=== PATIENT | male | born 1995 | race Caucasian/White ===

== ENCOUNTER 2017-05-10 15:01 | Emergency (ER) | payer SELFPAY ==
[2017-05-10] MEDS ORDERED: Tetan/Diph/Pertus SYR(Tdap)* 0.5 ML SYR(BOOSTRIX) use SYR IM ONE (15:55)
[2017-05-10] MEDS ORDERED: Lidocaine 1% INJ* 10 MG/ML 30 ML SDV INJ ONE (16:32)
--- NOTE | 2017-05-10 17:22 | ED ---
Laceration/Wound HPI - HPI Summary HPI Summary: 21M presents with laceration to left thumb today. He cut it on some metal today at work. He has full ROM of his finger. He denies any numbness or tingling. He denies any foreign body or fracture. His pain is 3/10. He is right handed. - History of Current Complaint Stated Complaint: LT THUMB LAC Time Seen by Provider: 05/10/17 15:21 Pain Intensity: 3 - Allergy/Home Medications Allergies/Adverse Reactions: Allergies Allergy/AdvReac Type Severity Reaction Status Date / Time No Known Allergies Allergy Verified 05/10/17 16:41 PMH/Surg Hx/FS Hx/Imm Hx Endocrine/Hematology History: Denies: Hx Anticoagulant Therapy Infectious Disease History: Yes Infectious Disease History: Denies: Traveled Outside the [place] in Last 30 Days - Family History Known Family History: Positive: Hypertension - Social History Alcohol Use: Rare Substance Use Type: Reports: None Smoking Status (MU): Never Smoked Tobacco Review of Systems Negative: Fever Negative: Chest Pain Negative: Shortness Of Breath Positive: Other - lac fingers All Other Systems Reviewed And Are Negative: Yes Physical Exam Triage Information Reviewed: Yes Vital Signs On Initial Exam: Initial Vitals Temp Pulse Resp BP Pulse Ox 97.7 F 63 18 150/112 100 05/10/17 15:05 05/10/17 15:05 05/10/17 15:05 05/10/17 15:05 05/10/17 15:05 Vital Signs Reviewed: Yes Appearance: Positive: Well-Appearing Skin: Positive: Warm, Dry, Other - 2cm laceration across distal phalanx of left thumb Head/Face: Positive: Normal Head/Face Inspection Eyes: Positive: Normal, Conjunctiva Clear Respiratory/Lung Sounds: Positive: Clear to Auscultation, Breath Sounds Present Cardiovascular: Positive: Normal, RRR Musculoskeletal: Positive: Strength/ROM Intact - left thumb, Other - capillary refill<2 secs, good pulses Procedures - Laceration/Wound Repair 1 Location: Other - left thumb Description: Linear Anesthesia: Digital, 1.0% Length, Depth and Shape: 2cm by 1/4cm Betadine Prep?: Yes Irrigated w/ Saline (ccs): 300 Laceration/Wound Explored: clean, foreign body removed Closure: Single Layer Suture Type: Prolene - 4-0 Number of Sutures: 6 Layer Closure?: No Sterile Dressing Applied?: Yes - telfa and coband Diagnostics - Vital Signs Vital Signs Temp Pulse Resp BP Pulse Ox 05/10/17 15:05 97.7 F 63 18 150/112 100 - Laboratory Lab Statement: Any lab studies that have been ordered have been reviewed, and results considered in the medical decision making process. Laceration Repair Course/Dx - Course Course Of Treatment: 21M presents with laceration to left thumb today. He cut it on some metal today at work. He has full ROM of his finger. He denies any numbness or tingling. He denies any foreign body or fracture. His pain is 3/ 10. He is right handed. on exam has 2cm laceration to distal phalanx of left thumb. cleaned and placed 6 sutures in. patient understands and agrees with plan. - Differential Dx Differental Diagnoses: Abrasion, Avulsion, Laceration - Clinical Impression Provider Diagnoses: Laceration of left thumb Discharge - Discharge Plan Condition: Good Disposition: HOME Patient Education Materials: Care For Your Stitches (ED) Referrals: No Primary Care Phys,NOPCP [Primary Care Provider] - Additional Instructions: Take Tylenol or ibuprofen for pain Keep area clean and dry for 48 hours Return to ED or primary in 10-14 days to have sutures removed Return to ED if develop signs of infection such as fever, spreading redness, or pus.
[2017-05-10 17:31] VITALS: BP 135/67
== END 2017-05-10 17:31 | disposition home or self-care (01) ==
LOC: ED 15:01
DX: S61.012A Laceration without foreign body of left thumb without damage to nail, initial encounter (principal); W26.9XXA Contact with unspecified sharp object(s), initial encounter; Y93.9 Activity, unspecified; Y92.9 Unspecified place or not applicable; Y99.9 Unspecified external cause status
CPT/HCPCS: 12001; 90471; 90715; 96374; 99282; J2001

== ENCOUNTER → 2017-05-21 07:08 | Emergency (ER) | payer SELFPAY ==
[2017-05-21 07:13] VITALS: BP 150/75
--- NOTE | 2017-05-21 18:57 | ED ---
Gil Deshpande Angela, scribed for Ap Arechiga MD on 05/21/17 at 0747 . Skin Complaint - HPI Summary HPI Summary: This pt is a 21 y/o male presenting to [facility] for suture removal from his left thumb. Pt reports his stitches were placed on 05/10/17 after he sustained a laceration from a metal at work. Pt denies any bleeding, redness, fever, weakness, numbness. Pt is right hand dominant. - History of Current Complaint Chief Complaint: EDGeneral Time Seen by Provider: 05/21/17 07:44 Stated Complaint: STITCHES REMOVAL Hx Obtained From: Patient Onset/Duration: Started Days Ago Skin Exposure Onset/Duration: Days Ago Timing: Lasting Days Pain Intensity: 0 Skin Location: Other: - left thumb Aggravating Symptom(s): Nothing Alleviating Symptom(s): Nothing - Allergy/Home Medications Allergies/Adverse Reactions: Allergies Allergy/AdvReac Type Severity Reaction Status Date / Time Latex Allergy See Comment Verified 05/21/17 07:14 PMH/Surg Hx/FS Hx/Imm Hx Endocrine/Hematology History: Denies: Hx Anticoagulant Therapy, Hx Diabetes Cardiovascular History: Denies: Hx Hypertension Infectious Disease History: No Infectious Disease History: Denies: Traveled Outside the [place] in Last 30 Days - Family History Known Family History: Positive: Hypertension - Social History Alcohol Use: Rare Substance Use Type: Reports: None Smoking Status (MU): Never Smoked Tobacco Review of Systems Negative: Fever, Chills Eyes: Negative ENT: Negative Cardiovascular: Negative Positive: Other - stitches on left thumb Neurological: Negative All Other Systems Reviewed And Are Negative: Yes Physical Exam - Summary Physical Exam Summary: VITAL SIGNS: Reviewed. GENERAL: Patient is a well-developed and nourished male who is lying comfortable in the stretcher. Patient is not in any acute respiratory distress. HEAD AND FACE: No signs of trauma. No ecchymosis, hematomas or skull depressions. No sinus tenderness. EYES: PERRLA, EOMI x 2, No injected conjunctiva, no nystagmus. EARS: Hearing grossly intact. Ear canals and tympanic membranes are within normal limits. MOUTH: Oropharynx within normal limits. NECK: Supple, trachea is midline, no adenopathy, no JVD, no carotid bruit, no c- spine tenderness, neck with full ROM. CHEST: Symmetric, no tenderness at palpation LUNGS: Clear to auscultation bilaterally. No wheezing or crackles. CVS: Regular rate and rhythm, S1 and S2 present, no murmurs or gallops appreciated. ABDOMEN: Soft, non-tender. No signs of distention. No rebound no guarding, and no masses palpated. Bowel sounds are normal. EXTREMITIES: FROM in all major joints, no edema, no cyanosis or clubbing. LUE: left thumb with stitches. There is no signs of infection and there is good healing. NEURO: Alert and oriented x 3. No acute neurological deficits. Speech is normal and follows commands. SKIN: Dry and warm Triage Information Reviewed: Yes Vital Signs On Initial Exam: Initial Vitals Temp Pulse Resp BP Pulse Ox 97.0 F 56 16 150/75 100 05/21/17 07:11 05/21/17 07:11 05/21/17 07:11 05/21/17 07:11 05/21/17 07:11 Vital Signs Reviewed: Yes Diagnostics - Vital Signs Vital Signs Temp Pulse Resp BP Pulse Ox 05/21/17 07:11 97.0 F 56 16 150/75 100 - Laboratory Lab Statement: Any lab studies that have been ordered have been reviewed, and results considered in the medical decision making process. Course/Dx - Course Assessment/Plan: This pt is a 21 y/o male presenting to [facility] for suture removal from his left thumb. Pt reports his stitches were placed on 05/10/17 after he sustained a laceration from a metal at work. Pt denies any bleeding, redness, fever, weakness, numbness. Pt is right hand dominant. Pt's stitches were removed without any complications. The pt wound was well healed without any erythema or infection. Pt is hemodynamically stable, alert and oriented x3. - Diagnoses Provider Diagnoses: Encounter for removal of sutures Discharge - Discharge Plan Condition: Stable Disposition: HOME Patient Education Materials: Stitches Removal (ED) Referrals: [facility]ERR[facility] [Outside] The documentation as recorded by the Gil corral Angela accurately reflects the service I personally performed and the decisions made by Hawk box Walter, MD.
== END | disposition home or self-care (01) ==
LOC: ED 07:08
DX: Z48.02 Encounter for removal of sutures (principal); S61.012D Laceration without foreign body of left thumb without damage to nail, subsequent encounter; X58.XXXD Exposure to other specified factors, subsequent encounter
CPT/HCPCS: 99282